=== PATIENT | female | born 1940 | race Caucasian/White ===

== ENCOUNTER → 2017-09-20 | Outpatient (CLI) | payer MEDICARE ==
[~2017-09-20] MED LIST: ACET325; AMLO10/10; ASPI325; ASPI325 PO; ATOR10 PO; BACL10 PO; BAYETTA; CAPT12.5; CONEST.625; CRUTCH3 USE; DICL75ER; DICL75ER PO; GLIM4 PO; HYDACE5 PO; HYDMOR2 PO; IBUP800 PO; INSULANI; INSULANI SQ; INSULANPEN SC; LEVSOD75 PO; LISI5 PO; METF500 PO; NAPR220 PO; NAPR500; PIOG15; PIOG45; TRAM50; TRAM50 PO; TRIHYD; TRIHYD5075; Tylenol325 MG PO
== END ==
LOC: LAB 13:40
DX: E11.65 Type 2 diabetes mellitus with hyperglycemia (principal)
CPT/HCPCS: 82043

== ENCOUNTER 2019-12-25 20:32 | Emergency (ER) | payer MEDICARE ==
[~2019-12-25] VITALS: Ht 162.6 cm; Wt 93.0 kg
[2019-12-25 21:52] LABS: BASOPHILS PERCENT AUTO 0 % (0-2); EOSINOPHILS PERCENT AUTO 0 % (0-6); Hematocrit 44.1 % (33.0-51.0); Hemoglobin 14.1 g/dL (11.5-16.0); IMMATURE GRAN ABSOLUTE AUTO 0.04 K/mm3 (0.00-0.10); IMMATURE GRAN PERCENT AUTO 1 % (0-1); LYMPHOCYTES ABSOLUTE AUTO 0.75 K/mm3 (0.84-5.20); LYMPHOCYTES PERCENT AUTO 17 % (21-46); MONOCYTES ABSOLUTE AUTO 0.22 K/mm3 (0.16-1.47); MONOCYTES PERCENT AUTO 5 % (4-13); Mean Corpuscular HGB 28.8 pg (26.0-34.0); Mean Corpuscular Volume 90 fL (80-100); Mean Platelet Volume 12.3 fL (9.1-12.4); NEUTROPHILS ABSOLUTE AUTO 3.45 K/mm3 (1.96-9.15); NEUTROPHILS PERCENT AUTO 77 % (41-73); Platelet Count 105 K/mm3 (150-400); RDW Coefficient Variation 12.5 % (11.7-14.2); RDW Standard Deviation 41.2 fL (35.1-46.3); Red Blood Cell Count 4.89 M/mm3 (3.80-5.20); White Blood Cell Count 4.46 K/mm3 (4.00-11.30)
[2019-12-25 22:05] LABS: Alanine Aminotransfer (ALT/SGP 24 U/L (12-78); Albumin, Blood 3.8 g/dL (3.4-5.0); Albumin/Globulin Ratio 0.9 (0.8-1.8); Alk Phos 86 U/L (50-136); Anion Gap 10 mmol/L (6-16); Aspartate Aminotrans (AST/SGOT 16 U/L (12-37); Bilirubin, Total 0.5 mg/dL (0.1-1.0); Blood Urea Nitrogen 17 mg/dL (8-24); Bun/Creatinine Ratio 21.9 (12.0-20.0); CO2, Blood 25 mmol/L (21-32); Calcium, Blood 9.3 mg/dL (8.5-10.1); Chloride, Blood 102 mmol/L (98-108); Creatinine, Blood 0.78 mg/dL (0.40-1.00); Globulin, Blood 4.1 g/dL (2.2-4.0); Glomerular Filtration Rate >60 (60-); Glucose, Blood 267 mg/dL (70-99); Sodium, Blood 137 mmol/L (136-145); Total Protein, Blood 7.9 g/dL (6.4-8.2)
== END 2019-12-26 01:08 | disposition home or self-care (01) ==
LOC: ER 20:32
PROVIDERS: Emergency Medicine
DX: E11.65 Type 2 diabetes mellitus with hyperglycemia (principal); R11.2 Nausea with vomiting, unspecified; I10 Essential (primary) hypertension; Z88.0 Allergy status to penicillin; Z88.2 Allergy status to sulfonamides; Z79.899 Other long term (current) drug therapy; Z79.4 Long term (current) use of insulin; Z79.82 Long term (current) use of aspirin
CPT/HCPCS: 36415; 80053; 83690; 85025; 96361; 96374; 99284-25; J2405; J7030

== ENCOUNTER 2020-12-27 00:19 | Day surgery (SDC) | payer MEDICARE ==
[~2020-12-27 00:19] MED LIST changes: +BASAGLAR K100 UNIT/1 SC; +NITR.4SL SL
== END 2020-12-27 22:49 | disposition home or self-care (01) ==
LOC: WOUND 00:19
DX: L89.322 Pressure ulcer of left buttock, stage 2 (principal); L89.312 Pressure ulcer of right buttock, stage 2; E11.622 Type 2 diabetes mellitus with other skin ulcer; Z88.0 Allergy status to penicillin; Z88.2 Allergy status to sulfonamides
CPT/HCPCS: A9270; G0463

== ENCOUNTER 2021-01-07 00:57 | Day surgery (SDC) | payer MEDICARE | END 2021-01-07 23:08 | disposition home or self-care (01) | LOC: WOUND 00:57 | DX: L89.312 Pressure ulcer of right buttock, stage 2 (principal); L89.322 Pressure ulcer of left buttock, stage 2; E11.622 Type 2 diabetes mellitus with other skin ulcer | CPT/HCPCS: A9270 ==

== ENCOUNTER 2021-01-11 04:54 | Day surgery (SDC) | payer MEDICARE | END 2021-01-11 23:40 | disposition home or self-care (01) | LOC: WOUND 04:54 | DX: L89.322 Pressure ulcer of left buttock, stage 2 (principal); L89.312 Pressure ulcer of right buttock, stage 2; E11.622 Type 2 diabetes mellitus with other skin ulcer | CPT/HCPCS: G0463 ==

== ENCOUNTER 2021-01-13 05:34 | Day surgery (SDC) | payer MEDICARE | END 2021-01-13 22:36 | disposition home or self-care (01) | LOC: WOUND 05:34 | DX: L89.323 Pressure ulcer of left buttock, stage 3 (principal); L89.313 Pressure ulcer of right buttock, stage 3; E11.622 Type 2 diabetes mellitus with other skin ulcer | CPT/HCPCS: A9270 ==

== ENCOUNTER 2021-07-15 01:44 | Day surgery (SDC) | payer MEDICARE | END 2021-07-15 23:17 | disposition home or self-care (01) | LOC: WOUND 01:44 | DX: L97.822 Non-pressure chronic ulcer of other part of left lower leg with fat layer exposed (principal); L97.812 Non-pressure chronic ulcer of other part of right lower leg with fat layer exposed; I87.319 Chronic venous hypertension (idiopathic) with ulcer of unspecified lower extremity; I87.2 Venous insufficiency (chronic) (peripheral); E11.51 Type 2 diabetes mellitus with diabetic peripheral angiopathy without gangrene; E11.65 Type 2 diabetes mellitus with hyperglycemia; I10 Essential (primary) hypertension; Z88.0 Allergy status to penicillin; Z88.2 Allergy status to sulfonamides; Z88.5 Allergy status to narcotic agent | CPT/HCPCS: A9270; G0463 ==

== ENCOUNTER 2021-07-20 00:42 | Day surgery (SDC) | payer MEDICARE | END 2021-07-20 23:08 | disposition home or self-care (01) | LOC: WOUND 00:42 | DX: I87.319 Chronic venous hypertension (idiopathic) with ulcer of unspecified lower extremity (principal); I87.2 Venous insufficiency (chronic) (peripheral); E11.51 Type 2 diabetes mellitus with diabetic peripheral angiopathy without gangrene; E11.65 Type 2 diabetes mellitus with hyperglycemia; I10 Essential (primary) hypertension | CPT/HCPCS: G0463 ==

== ENCOUNTER 2021-08-03 05:34 | Day surgery (SDC) | payer MEDICARE | END 2021-08-03 22:36 | disposition home or self-care (01) | LOC: WOUND 05:34 | DX: E11.51 Type 2 diabetes mellitus with diabetic peripheral angiopathy without gangrene (principal); L97.822 Non-pressure chronic ulcer of other part of left lower leg with fat layer exposed; I70.248 Atherosclerosis of native arteries of left leg with ulceration of other part of lower leg; L97.819 Non-pressure chronic ulcer of other part of right lower leg with unspecified severity; E11.65 Type 2 diabetes mellitus with hyperglycemia; I10 Essential (primary) hypertension | CPT/HCPCS: A9270; G0463 ==

== ENCOUNTER 2021-08-24 01:46 | Day surgery (SDC) | payer MEDICARE | END 2021-08-24 22:35 | disposition home or self-care (01) | LOC: WOUND 01:46 | DX: E11.622 Type 2 diabetes mellitus with other skin ulcer (principal); L97.822 Non-pressure chronic ulcer of other part of left lower leg with fat layer exposed; I87.311 Chronic venous hypertension (idiopathic) with ulcer of right lower extremity; L97.812 Non-pressure chronic ulcer of other part of right lower leg with fat layer exposed; E11.51 Type 2 diabetes mellitus with diabetic peripheral angiopathy without gangrene; E11.65 Type 2 diabetes mellitus with hyperglycemia; I10 Essential (primary) hypertension; I87.2 Venous insufficiency (chronic) (peripheral) | CPT/HCPCS: A9270 ==

== ENCOUNTER 2021-08-31 00:40 | Day surgery (SDC) | payer MEDICARE | END 2021-08-31 22:48 | disposition home or self-care (01) | LOC: WOUND 00:40 | DX: E11.622 Type 2 diabetes mellitus with other skin ulcer (principal); L97.922 Non-pressure chronic ulcer of unspecified part of left lower leg with fat layer exposed; L97.812 Non-pressure chronic ulcer of other part of right lower leg with fat layer exposed; I87.319 Chronic venous hypertension (idiopathic) with ulcer of unspecified lower extremity; I87.2 Venous insufficiency (chronic) (peripheral); E11.51 Type 2 diabetes mellitus with diabetic peripheral angiopathy without gangrene; E11.65 Type 2 diabetes mellitus with hyperglycemia; I10 Essential (primary) hypertension; I73.9 Peripheral vascular disease, unspecified; I87.313 Chronic venous hypertension (idiopathic) with ulcer of bilateral lower extremity ==

== ENCOUNTER 2021-09-06 04:04 | Day surgery (SDC) | payer MEDICARE | END 2021-09-06 23:15 | disposition home or self-care (01) | LOC: WOUND 04:04 | DX: E11.622 Type 2 diabetes mellitus with other skin ulcer (principal); I87.313 Chronic venous hypertension (idiopathic) with ulcer of bilateral lower extremity; L97.921 Non-pressure chronic ulcer of unspecified part of left lower leg limited to breakdown of skin; L97.912 Non-pressure chronic ulcer of unspecified part of right lower leg with fat layer exposed; I87.2 Venous insufficiency (chronic) (peripheral); E11.51 Type 2 diabetes mellitus with diabetic peripheral angiopathy without gangrene; E11.65 Type 2 diabetes mellitus with hyperglycemia; R60.0 Localized edema; I10 Essential (primary) hypertension ==

== ENCOUNTER 2021-09-14 03:34 | Day surgery (SDC) | payer MEDICARE | END 2021-09-15 02:17 | disposition home or self-care (01) | LOC: WOUND 03:34 | DX: E11.622 Type 2 diabetes mellitus with other skin ulcer (principal); L97.829 Non-pressure chronic ulcer of other part of left lower leg with unspecified severity; L97.819 Non-pressure chronic ulcer of other part of right lower leg with unspecified severity; I87.313 Chronic venous hypertension (idiopathic) with ulcer of bilateral lower extremity; I87.2 Venous insufficiency (chronic) (peripheral); R60.0 Localized edema ==

== ENCOUNTER 2021-09-21 01:13 | Day surgery (SDC) | payer MEDICARE | END 2021-09-21 23:30 | disposition home or self-care (01) | LOC: WOUND 01:13 | DX: E11.622 Type 2 diabetes mellitus with other skin ulcer (principal); L97.829 Non-pressure chronic ulcer of other part of left lower leg with unspecified severity; L97.819 Non-pressure chronic ulcer of other part of right lower leg with unspecified severity; I87.313 Chronic venous hypertension (idiopathic) with ulcer of bilateral lower extremity; I87.2 Venous insufficiency (chronic) (peripheral); R60.0 Localized edema | CPT/HCPCS: G0463 ==

== ENCOUNTER → 2022-01-27 | Outpatient (CLI) | payer MEDICARE ==
[2022-01-27 20:11] LABS: Creatinine, Urine Random 56.1 mg/dL (27.00-270.00); Microalb/Creat Ratio UR, Rand 163.102 mg/g (0.000-30.000); Microalbumin, Random Urine 91.5 mg/L (0.000-20.000)
== END | disposition home or self-care (01) ==
LOC: LAB SHORT 14:14 → LAB 14:14
PROVIDERS: Internal Medicine Endocrinology, Diabetes & Metabolism
DX: E11.65 Type 2 diabetes mellitus with hyperglycemia (principal)
CPT/HCPCS: 82043; 82570

== ENCOUNTER → 2022-10-23 | Outpatient (CLI) | payer MEDICARE ==
[2022-10-24 05:39] LABS: Creatinine, Urine Random 72.3 mg/dL (27.00-270.00); Microalb/Creat Ratio UR, Rand 98.202 mg/g (0.000-30.000)
== END | disposition home or self-care (01) ==
LOC: LAB SHORT 13:52 → LAB 13:52
PROVIDERS: Internal Medicine Endocrinology, Diabetes & Metabolism
DX: E11.29 Type 2 diabetes mellitus with other diabetic kidney complication (principal)
CPT/HCPCS: 82043; 82570

== ENCOUNTER 2024-07-25 07:49 | Inpatient (IN) | payer MEDICARE ==
[2024-07-25] VITALS (14 sets, daily range): BP systolic 109–177; BP diastolic 47–148
[~2024-07-25] VITALS: Ht 160 cm; Wt 67.7 kg
[~2024-07-25 07:49] MED LIST changes: +ACET500 PO; -ASPI325; +ATOR40TA PO; +Aspir 8181 MG PO; +DULO30 PO; +JARDIANCE25 MG PO; +KRILL OIL 1,001 EAC1 PO; +LEVSOD100 PO; -LEVSOD75 PO; +LISI20 PO; -LISI5 PO; +MELATONIN5 M1 PO; +MULVITA PO; -TRAM50
--- NOTE | 2024-07-25 08:57 | NUR ---
History, Chart, Medications and Allergies reviewed before start of procedure.LUNGS CLEAR PRE OP TEACHING DONE.
[2024-07-25] MEDS ORDERED: Bupivacaine 0.5% HCl 5 MG/ML 30MLVIAL ONE (09:18)
[2024-07-25] MEDS ORDERED: CeFAZolin Sodium 2,000 MG in NS 100 ML IV SCH (09:20)
[2024-07-25] MEDS ORDERED: Lactated Ringer's 1,000 ML IV SCH (09:20)
[2024-07-25] MEDS ORDERED: Midazolam HCl 1MG / ML 2ML Vial IV ONE (09:20)
[2024-07-25] MEDS ORDERED: CeFAZolin Sodium 2,000 MG VIAL ONE (09:25)
[2024-07-25] MEDS ORDERED: HYDROmorphone HCl/Pf 1MG SYR ONE ×2 (09:35→12:29)
[2024-07-25] MEDS ORDERED: Etomidate 2MG / ML 10ML Vial ONE (09:37)
[2024-07-25] MEDS ORDERED: Phenylephrine HCl 10mg/ml 1 ml Vial ONE (09:43)
[2024-07-25] MEDS ORDERED: Methylene Blue 1% 100 MG/10 ML VIAL ONE (09:43)
[2024-07-25] MEDS ORDERED: Ondansetron HCl 2 MG / ML 2ML Vial ONE (11:47)
[2024-07-25] MEDS ORDERED: Dexamethasone Sod Phos 10 MG/ML 1ML VIAL ONE (11:47)
[2024-07-25] MEDS ORDERED: Acetaminophen 500 MG Tab PO PRN (11:50)
[2024-07-25] MEDS ORDERED: Nitroglycerin 0.4 MG SUBL SL PRN (11:55)
[2024-07-25] MEDS ORDERED: Ondansetron HCl 2 MG / ML 2ML Vial IV PRN (11:55)
[2024-07-25] MEDS ORDERED: FLU VACC TS2024-25(6MOS UP)/PF 45 MCG/0.5 ML SYRINGE IM SCH (11:55)
[2024-07-25] MEDS ORDERED: Morphine Sulfate 4 MG/1 ML Injection IV PRN (12:00)
[2024-07-25] MEDS ORDERED: TraMADol HCl 50 MG Tab PO SCH ×2 (14:00→21:00)
[2024-07-25] MEDS ORDERED: TraMADol HCl 50 MG Tab PO ONE (15:15)
--- NOTE | 2024-07-25 15:56 | NUR ---
PT MEDICATED WITH TRAMADOL. LINENS CHANGED AND THEN PT REPORTED NAUSEA. HEAD OF BED ELEVATED AND PT HAD X1 EMESIS. TRAMADOL PILL NOT VISUALIZED IN EMESIS. PT MEDICATED WITH ZOFRAN. BLOOD SUGAR TAKEN PER PT DAUGHTER REQUEST. BLOOD SUGAR RESULT OF 190. MARQUIS#1 DRAIN EMPTIED WITH SS OUTPUT. PT REPORTED THAT SHE VOIDED IN HER DEPENDS, BUT WANTED TO WAIT TO BE CHANGED UNTIL ANTIEMETICS STARTED TAKING EFFECT. NOTIFIED MINING CAPTAIN AND PRIMARY RN. PT DAUGHTER AT BEDSIDE FOR SUPPORT. CALL LIGHT WITHIN REACH.
--- NOTE | 2024-07-25 18:34 | NUR ---
POST OP: REPORT RECEIVED FROM CARGO SURVEYOR. PT TO UNIT AT 1300. A/O, HTN NOTED OTHERWISE VSS. SURGICAL SITE WNL, MARQUIS DRAINS COMPRESSED, NO OUTPUT AT THIS TIME. PT MEDICATED FOR PAIN AND ORIENTED TO ROOM AND CALL LIGHT.
--- NOTE | 2024-07-25 18:37 | NUR ---
SUMMARY: NO ACUTE CHANGE SINCE POST OP. VSS, BP STABLE. PAIN APPEARS TO BE MANAGED WITH THE TRAMADOL. 200ML EMPTIED FROM MARQUIS 1, NO OUTPUT FROM MARQUIS 2. PT ABLE TO VOID IN ATTENDS AND SIT AT EDGE OF BED. PT NAUSEATED WITH LARGER MOVEMENTS, HAS NOT AMBULATED YET DUE TO NAUSEA. PT ACUTE SAFETY CONCERNS, PT USES CALL LIGHT AND MAKES NEEDS KNOWN.
[2024-07-25] MEDS ORDERED: Docusate Sodium 100 MG Cap PO SCH (21:00)
[2024-07-25] MEDS ORDERED: MetFORMIN HCl 500 mg PO SCH (21:00)
[2024-07-25] MEDS ORDERED: Melatonin 5 MG Tablet PO SCH (21:00)
[2024-07-26 03:30] VITALS: BP 115/47
[2024-07-26] MEDS ORDERED: Levothyroxine Sodium 0.1 MG Tab PO SCH (06:00)
--- NOTE | 2024-07-26 06:03 | NUR ---
SHIFT SUMMARY POD 1 L MASTECTOMY PT RESTED FOR MOST OF SHIFT. PAIN MANAGED PER EMAR. TOLERATING PO INTAKE. VOIDING. DRESSING TO L CHEST AREA IS C/D/I. BINDER IN PLACE. X2 MARQUIS DRAINS, #1 DRAINING SANGINEOUS FLUID, #2 HAS NOT HAD OSMEL OUTPUT. DRESSING TO MARQUIS'S ARE C/D/I. PT IS 1P SBA TO THE BATHROOM. VSS. NO OTHER CONCERNS AT THIS TIME, CALL LIGHT WITHIN REACH
[2024-07-26 07:43] VITALS: BP 131/52
[2024-07-26] MEDS ORDERED: Empagliflozin 25 MG TAB PO SCH (09:00)
[2024-07-26] MEDS ORDERED: Atorvastatin 40 MG Tab PO SCH (09:00)
[2024-07-26] MEDS ORDERED: Lisinopril 20 MG Tab PO SCH (09:00)
[2024-07-26] MEDS ORDERED: MetFORMIN HCl 500 mg PO SCH (09:00)
[2024-07-26] MEDS ORDERED: Insulin Glargine-Yfgn 100 Unit/mL 3 ML SYR SC SCH (09:00)
[2024-07-26] MEDS ORDERED: DULoxetine HCL 30 MG Cap DR PO SCH (09:00)
--- NOTE | 2024-07-26 11:09 | NUR ---
DISCHARGE SUMMARY POD1 L MASTECTOMY, A/OX4, VSS, TOLERATING PO, AMBULATING WELL WITH SBA FOR INTERMITTENT DIZZY SPELLS SHE REPORTS GETTING. DRESSING CHANGED AT THE BEDSIDE THIS AM BY SURGERY, PROVIDED HER WITH ADDITIONAL DRESSINGS TO GO HOME WITH FOR DAILY DRESSING CHANGES UNTIL HER FOLLOW UP. DISCUSSED DISCHARGE INSTRUCTIONS INCLUDING HOME CARE, MEDICATIONS, AND FOLLOW UP APPOINTMENTS. PROVIDED HER WITH A DRAIN RECORD AND CONTAINER TO MEASURE OUTPUT AND INSTRUCTIONS ON DRAIN MANAGEMENT AT HOME. HER DAUGHTER WAS IN THE ROOM AND LISTENING IN SO SHE CAN ASSIST WITH THE DRAINS. ALL QUESTIONS ANSWERED DURING DC INSTRUCTIONS. ESCORTED OUT VIA WC TO PRIVATE AUTO TO GO HOME.
== END 2024-07-26 10:40 | disposition home or self-care (01) | DRG 580 ==
LOC: MEDS 07:49 → PRE IP 08:30 → SURS 13:18
PROVIDERS: ADMIT Surgery
PROC: 0HBU0ZZ Excision of Left Breast, Open Approach (ICD-10-PCS; 2024-07-25)
PROC: 07B60ZX Excision of Left Axillary Lymphatic, Open Approach, Diagnostic (ICD-10-PCS; principal; 2024-07-25 10:00)
DX: C50.912 Malignant neoplasm of unspecified site of left female breast (principal); I42.1 Obstructive hypertrophic cardiomyopathy; D64.9 Anemia, unspecified; E11.9 Type 2 diabetes mellitus without complications; I10 Essential (primary) hypertension; E03.9 Hypothyroidism, unspecified; E78.2 Mixed hyperlipidemia; E66.9 Obesity, unspecified; Z96.651 Presence of right artificial knee joint; Z98.42 Cataract extraction status, left eye; Z90.710 Acquired absence of both cervix and uterus; Z98.890 Other specified postprocedural states; Z79.83 Long term (current) use of bisphosphonates; Z79.82 Long term (current) use of aspirin; Z79.899 Other long term (current) drug therapy; Z79.4 Long term (current) use of insulin; Z79.84 Long term (current) use of oral hypoglycemic drugs; Z79.01 Long term (current) use of anticoagulants; Z79.890 Hormone replacement therapy; Z88.0 Allergy status to penicillin; Z88.2 Allergy status to sulfonamides; Z88.8 Allergy status to other drugs, medicaments and biological substances; Z88.1 Allergy status to other antibiotic agents
CPT/HCPCS: 38792; 82947; 88307; A9270; A9520; J0690; J1100; J1171; J1815; J2250; J2371; J2405; J7120; Q9968